=== PATIENT | female | born 1990 | race Caucasian/White ===

== ENCOUNTER 2020-03-22 20:10 | Emergency (ER) | payer MEDICAID, SELFPAY ==
[~2020-03-22] VITALS: Ht 157.5 cm; Wt 65.8 kg
[2020-03-22 20:12] VITALS: BP 115/76; Ht 157.5 cm; Wt 65.8 kg
== END 2020-03-22 21:30 | disposition home or self-care (01) ==
LOC: ED 20:10
DX: R51.9 Headache, unspecified (principal); J02.9 Acute pharyngitis, unspecified; R11.0 Nausea; R53.83 Other fatigue; Z20.828 Contact with and (suspected) exposure to other viral communicable diseases
CPT/HCPCS: U0003

== ENCOUNTER 2020-06-01 22:33 | Emergency (ER) | payer MEDICAID ==
[~2020-06-01] VITALS: Ht 157.5 cm; Wt 76.0 kg
[2020-06-01 22:47] VITALS: Ht 157.5 cm; Wt 76.0 kg
[2020-06-02 02:19] LABS: BASOPHIL % 0.2 % (0.2-1.3); PLATELET COUNT 230 x10^3mcL (179-408); RED CELL DISTRIBUTION WIDTH 13.4 % (12.3-17.7)
[2020-06-02 02:30] LABS: CALCIUM 8.9 mg/dL (8.5-10.1); CARBON DIOXIDE 28.3 mmol/L (21-32); CHLORIDE SERUM 105 mmol/L (98-107); CREATININE SERUM 0.7 mg/dL (0.6-1.0); GFR1 > 60 mL/min; GLUCOSE SERUM 102 mg/dL (74-106); POTASSIUM SERUM 3.7 mmol/L (3.5-5.1); SODIUM SERUM 142 mmol/L (136-145)
[2020-06-02 04:19] VITALS: BP 105/64
== END 2020-06-02 05:02 | disposition home or self-care (01) ==
LOC: ED 22:33
PROVIDERS: Emergency Medicine
DX: J03.90 Acute tonsillitis, unspecified (principal)
CPT/HCPCS: J0780; J1200; J1885; J7030; Q9967

== ENCOUNTER 2020-06-06 16:13 | Emergency (ER) | payer MEDICAID ==
[~2020-06-06] VITALS: Ht 157.5 cm; Wt 85.3 kg
[2020-06-06 16:20] VITALS: Ht 157.5 cm; Wt 85.3 kg
[2020-06-06 18:26] LABS: BASOPHIL % 2.6 % (0.2-1.3); PLATELET COUNT 218 x10^3mcL (179-408); RED CELL DISTRIBUTION WIDTH 13.6 % (12.3-17.7)
[2020-06-06 18:31] LABS: CALCIUM 9.3 mg/dL (8.5-10.1); CARBON DIOXIDE 25.7 mmol/L (21-32); CHLORIDE SERUM 106 mmol/L (98-107); CREATININE SERUM 0.5 mg/dL (0.6-1.0); GFR1 > 60 mL/min; GLUCOSE SERUM 83 mg/dL (74-106); POTASSIUM SERUM 3.6 mmol/L (3.5-5.1); SODIUM SERUM 138 mmol/L (136-145)
[2020-06-06 18:46] LABS: ALBUMIN 4.2 g/dL (3.4-5.0); ALKALINE PHOSPHATASE 92 U/L (46-116); ALT/SGPT 36 U/L (14-59); AST/SGOT 19 U/L (15-37); BILIRUBIN TOTAL 0.3 mg/dL (0.20-1.00); TOTAL PROTEIN, SERUM 7.9 g/dL (6.4-8.2)
[2020-06-06 20:40] VITALS: BP 107/66
== END 2020-06-06 21:15 | disposition home or self-care (01) ==
LOC: ED 16:13
PROVIDERS: Student in an Organized Health Care Education/Training Program
DX: R51.9 Headache, unspecified (principal); R07.89 Other chest pain; M54.2 Cervicalgia
CPT/HCPCS: J2270; J2405; J7030; Q9967